=== PATIENT | female | born 1985 | race Caucasian/White ===

== ENCOUNTER 2018-02-27 20:10 | Observation (INO) ==
[2018-02-27] MEDS ORDERED: *HR* LORazepam 2 MG/ML VIAL IM ONE (20:55)
--- NOTE | 2018-02-27 20:59 | Emergency Department Note ---
Disposition Clinical Impression: TIA (transient ischemic attack), Hypokalemia Disposition: Admitted As Inpatient Condition: Good Time of Disposition: 23:11 General Adult HPI - General Chief complaint: ED General Medical Stated complaint: was here earlier, vomiting, can't keep medication Time Seen by Provider: 02/27/18 20:41 Source: patient Limitations: no limitations Nursing Notes Reviewed: Yes Vital Signs Reviewed: Yes - History of Present Illness HPI Narrative: 32 year old female presents to the eD with complanits of anxiety attacks and numbness and tinlgig into her hands and feet and states that she was seen here earlier for hypokalemia and hypomagnesuym and given replacement and sent home. She states tht she was at home and felt better and then went to bed and wokeup and felt her feet and hands numb which caused her anxiety to get worse and then started getting spasms into her hands without having LOC or stroke like symptoms. PAtient was ambulatory to the ED. Yolynet is alert and oriented and follows commands and appears anxious at bedside. Pain Scale: 0 - Related Data Previous Rx's Medication Instructions Recorded Promethazine [Phenergan] 25 mg RC Q6HR PRN #7 supp.rect 05/31/15 Dicyclomine [Bentyl] 10 mg PO TID #30 capsule 07/21/15 HYDROcodone/Acet 5/325 mg [[place] 1 tab PO Q6H PRN #10 tab 07/21/15 5-325 mg] Ondansetron [Zofran] 4 mg PO Q8HR #20 tablet 07/21/15 Potassium Citrate [Urocit-K] 10 meq PO BID #10 tablet.er 01/17/16 Omeprazole [PriLOSEC] 20 mg PO DAILY #30 cap 03/29/16 Ondansetron ODT [Zofran ODT] 4 mg SL Q6H PRN #10 tab.rapdis 03/29/16 Amoxicillin 875 mg PO BID 10 Days tablet 06/23/16 Sulfamethoxazole/Trimeth DS 1 each PO TID 10 Days tablet 06/23/16 [Bactrim DS] Potassium Effervescent [Klyte] 25 meq PO DAILY #14 tablet.eff 07/12/16 Promethazine [Phenergan] 25 mg PO Q8HR #10 tablet 07/12/16 Ondansetron HCl [Zofran] 4 mg PO Q6H PRN #10 tablet 01/13/17 Hyoscyamine SL [Levsin SL] 0.125 mg SL Q4HR PRN #15 tab.subl 06/02/17 Phenazopyridine [Pyridium] 100 mg PO TID PRN #25 tablet 06/02/17 Budesonide [Uceris] 9 mg PO QAM #14 tabdr...er 10/03/17 DiphenhydraMINE [Benadryl] 25 mg PO Q4HR PRN #28 capsule 10/03/17 Allergies Allergy/AdvReac Type Severity Reaction Status Date / Time alprazolam [From Xanax] Allergy Hives Verified 11/30/17 21:44 methylprednisolone Allergy Hives Verified 11/30/17 21:44 [From Depo-Medrol] morphine Allergy Hives Verified 11/30/17 21:44 prednisone Allergy Difficulty Verified 11/30/17 21:44 Breathing Constitutional: Denies: fever, chills, weakness, weight change Eyes: Denies: eye pain, eye discharge, vision change ENT ED: Denies: ear pain, throat pain, dental pain, hearing loss, epistaxis, congestion, dysphagia Cardiovascular: Denies: chest pain, palpitations, dyspnea on exertion, edema, syncope Respiratory: Denies: cough, dyspnea, wheezes, hemoptysis, stridor Gastrointestinal: Denies: abdominal pain, nausea, vomiting, diarrhea, constipation, hematemesis, melena, hematochezia Genitourinary: Denies: dysuria, frequency, hematuria, discharge Musculoskeletal: Reports: as per HPI. Denies: back pain, neck pain, arthralgia , myalgia Integumentary: Denies: rash, abrasion, lesions Neurological: Denies: headache, weakness, numbness, paresthesias, confusion, abnormal gait, vertigo Psychiatric: Reports: anxiety. Denies: depression, suicidal thoughts, homicidal thoughts, auditory hallucinations, visual hallucinations Endocrine: Denies: fatigue Hematological/Lymphatic: Denies: easy bleeding, easy bruising Allergic/Immunologic: Denies: facial swelling, urticaria Past Medical History - Past Medical History Medical history: Reports: cancer Surgical history: Reports: appendectomy, cholecystectomy, hysterectomy, other ( Breast lump removal) Psychiatric history: Reports: anxiety, depression TURBINE TECHNICIAN history: Reports: no TURBINE TECHNICIAN history - Social History Smoking Status: Current every day smoker Smokeless Tobacco Status: No Alcohol use: Reports: occasionally Drug use: Reports: marijuana Physical Exam - General Limitations: no limitations General appearance: alert, in no apparent distress - Head Head exam: atraumatic, normocephalic, normal inspection - Eye Eye exam: Present: normal appearance, PERRL, EOMI - Expanded Eye Exam Pupils: Bilateral: reactive - ENT ENT exam: normal exam, normal oropharynx, mucous membranes moist - Expanded ENT Exam External ear exam: Present: normal external inspection Mouth exam: Present: normal external inspection Teeth exam: Present: normal inspection Throat exam: Present: normal inspection - Neck Neck exam: Present: normal inspection, full ROM, trachea midline - Chest Chest inspection: Present: normal inspection, symmetric chest wall rise - Respiratory Respiratory exam: Present: normal lung sounds bilaterally - Cardiovascular Cardiovascular exam: Present: regular rate, normal rhythm, normal heart sounds - Abdominal Exam Abdominal exam: Present: soft, Non-Tender. Absent: tenderness, distention, guarding, rebound, rigidity - Extremities Exam Extremities exam: Present: normal inspection, full ROM. Absent: tenderness, pedal edema - Expanded Upper Extremity Exam Shoulder exam: Present: normal inspection, full ROM Arm exam: Present: normal inspection, full ROM Elbow exam: Present: normal inspection, full ROM Forearm/Wrist exam: Present: normal inspection, full ROM Hand exam: Present: normal inspection, full ROM Vascular exam: Normal: capillary refill, radial pulse - Expanded Lower Extremity Exam Hip/Pelvis exam: Present: normal inspection, full ROM Upper leg exam: Present: normal inspection, full ROM Knee exam: Present: normal inspection, full ROM Lower leg exam: Present: normal inspection, full ROM Ankle exam: Present: normal inspection, full ROM Foot/toe exam: Present: normal inspection, full ROM Neurovascular/Tendon exam: Absent: motor deficit, sensory deficit, tendon deficit - Back Exam Back exam: Present: normal inspection, full ROM. Absent: tenderness - Neurological Exam Neurological exam: Present: alert, oriented X3 - Expanded Neurological Exam Patient oriented to: Present: person, place, time Speech: Present: fluid speech Cranial nerves: EOM function (II, III, IV, ): Normal, facial sensation (V): Normal, facial palsy (VII): Normal, gag reflex (IX): Normal, spinal accessory function (XI): Normal, tongue deviation (XII): Normal Cerebellar function: finger to nose: Normal, heel to carranza: Normal Cerebellar function: normal gait Motor strength - LUE: 5/5 Motor strength - RUE: 5/5 Motor strength - LLE: 5/5 Motor strength - RLE: 5/5 Upper motor neuron exam: mikayla neglect: Absent bilaterally, pronator drift: Absent bilaterally Sensory exam upper extremity: light touch: Normal, pin prick: Normal Sensory exam lower extremity: light touch: Normal, pin prick: Normal Coma Scale Eye Opening: Spontaneous Coma Scale Motor Response: Obeys Commands Coma Scale Verbal Response: Oriented Coma Scale Total: 15 - Psychiatric Psychiatric exam: Present: normal affect, normal mood - Skin Skin exam: Present: warm, dry, intact, normal color Course Course Narrative: we will do potassium and magnesium labs for recheck. EKG is NSR at bedside. Patient will be given ativan for her anxiety. I believe there is a pyschosomatic nature to her symptoms which seems simliar to how she presented earlier. She states that she vomtitied her pills up from earlier. - Reevaluation(s) Reevaluation #1: patient is vomitting at bedside and is unable to tolerate PO. and her potassium has decreased. WE will admit to medicine for hypokalemia. Time: 21:29 Reevaluation #2: patient has an acute change in neuro sympttoms and as 2134 start to display dysarthria in addition to lefts ided facial droop and left sided upper extremity difficulty with finger to nose but no pronator drift. We have called STROKE ALERT Time: 21:40 - Consultations Consultation #1: dscussed case with Dr. starr tena with [facility] at [facility]. She woul dlike the results of the CTA head and neck and then we will discuss whether she needs to be trasnferred to [facility] Time: 22:25 Consultation #2: discussed case with and he accepts aptinet for admission, Time: 23:10 Vital Signs Temperature 98.3 F 02/27/18 20:28 Pulse Rate 90 02/27/18 20:28 Respiratory Rate 18 02/27/18 20:28 Blood Pressure 126/79 02/27/18 20:28 O2 Sat by Pulse Oximetry 99 02/27/18 20:28 Temperature 98.3 F 02/27/18 20:28 Pulse Rate 82 02/27/18 22:52 Respiratory Rate 18 02/27/18 22:52 Blood Pressure 109/73 02/27/18 22:52 O2 Sat by Pulse Oximetry 94 02/27/18 22:52 Oxygen Delivery Oxygen Delivery Room Air Medical Decision Making - Lab Data Result diagrams: 02/27/18 22:16 02/27/18 22:16 Lab Results 02/27/18 02/27/18 02/27/18 Range/Units 20:54 22:16 22:16 WBC 11.6 H (4.3-11.1) K/mcL RBC 4.31 (3.82-4.97) M/mcL Hgb 13.2 (11.5-15.4) g/dL Hct 38.4 (35.3-44.9) % MCV 89.1 (83.0-100.0) fL MCH 30.6 (28.0-33.3) pg MCHC 34.4 (31.6-35.5) g/dL RDW 13.0 (11.5-14.5) % Plt Count 309 (140-400) K/mcL MPV 10.1 (9.4-12.4) fL Immature Gran % 0.3 (0-4) % Seg Neutrophils % 63.0 % Lymphocytes % 30.5 % Monocytes % 5.3 % Eosinophils % 0.5 % Basophils % 0.4 % Neutrophils # 7.3 (1.6-8.9) K/mcL Lymphocytes # 3.5 (0.6-4.6) K/mcL Monocytes # 0.6 (0.0-1.3) K/mcL Eosinophils # 0.1 (0.0-0.6) K/mcL Basophils # 0.1 (0.0-0.2) K/mcL Immature Plt Fraction 4.7 (1.1-6.1) % PT 12.5 H (9.4-12.1) Seconds INR 1.1 APTT 33.8 (26.0-36.0) Seconds Sodium 143 (136-145) mEq/L Potassium 2.9 L (3.5-5.1) mEq/L Chloride 107 (98-107) mEq/L Carbon Dioxide 21 L (23-29) mEq/L BUN 6 (6-20) mg/dL Creatinine 0.70 (0.60-1.20) mg/dL Est GFR ( Amer) > 60 (> 60) Est GFR (Non-Af Amer) > 60 (> 60) BUN/Creatinine Ratio 9 (6-26) Glucose 104 (70-105) mg/dL Calculated Osmolality 294 (280-300) Calcium 9.6 (8.6-10.3) mg/dL Magnesium 1.6 (1.6-2.6) mg/dL Total Bilirubin 0.6 (0.3-1.0) mg/dL AST 17 (13-39) Units/L ALT 12 (7-52) Units/L Alkaline Phosphatase 75 (34-104) Units/L Troponin I (< 0.04) ng/mL Serum Total Protein 7.2 (6.4-8.9) g/dL Albumin 4.5 (3.5-5.7) g/dL Globulin 2.7 (2.4-3.5) g/dL Albumin/Globulin Ratio 1.7 (1.1-2.2) 02/27/18 Range/Units 22:16 WBC (4.3-11.1) K/mcL RBC (3.82-4.97) M/mcL Hgb (11.5-15.4) g/dL Hct (35.3-44.9) % MCV (83.0-100.0) fL MCH (28.0-33.3) pg MCHC (31.6-35.5) g/dL RDW (11.5-14.5) % Plt Count (140-400) K/mcL MPV (9.4-12.4) fL Immature Gran % (0-4) % Seg Neutrophils % % Lymphocytes % % Monocytes % % Eosinophils % % Basophils % % Neutrophils # (1.6-8.9) K/mcL Lymphocytes # (0.6-4.6) K/mcL Monocytes # (0.0-1.3) K/mcL Eosinophils # (0.0-0.6) K/mcL Basophils # (0.0-0.2) K/mcL Immature Plt Fraction (1.1-6.1) % PT (9.4-12.1) Seconds INR APTT (26.0-36.0) Seconds Sodium 138 (136-145) mEq/L Potassium 2.7 L (3.5-5.1) mEq/L Chloride 104 (98-107) mEq/L Carbon Dioxide 22 L (23-29) mEq/L BUN 6 (6-20) mg/dL Creatinine 0.72 (0.60-1.20) mg/dL Est GFR ( Amer) > 60 (> 60) Est GFR (Non-Af Amer) > 60 (> 60) BUN/Creatinine Ratio 8 (6-26) Glucose 93 (70-105) mg/dL Calculated Osmolality 283 (280-300) Calcium 9.4 (8.6-10.3) mg/dL Magnesium (1.6-2.6) mg/dL Total Bilirubin (0.3-1.0) mg/dL AST (13-39) Units/L ALT (7-52) Units/L Alkaline Phosphatase (34-104) Units/L Troponin I < 0.03 (< 0.04) ng/mL Serum Total Protein (6.4-8.9) g/dL Albumin (3.5-5.7) g/dL Globulin (2.4-3.5) g/dL Albumin/Globulin Ratio (1.1-2.2)
[2018-02-27 21:26] LABS: Alanine Aminotransferase 12 Units/L (7-52); Albumin 4.5 g/dL (3.5-5.7); Albumin/Globulin Ratio 1.7 (1.1-2.2); Alkaline Phosphatase 75 Units/L (34-104); Aspartate Amino Transferase 17 Units/L (13-39); BUN/Creatinine Ratio 9 (6-26); Bilirubin,Total 0.6 mg/dL (0.3-1.0); Blood Urea Nitrogen 6 mg/dL (6-20); Calcium 9.6 mg/dL (8.6-10.3); Carbon Dioxide 21 mEq/L (23-29); Chloride 107 mEq/L (98-107); Globulin 2.7 g/dL (2.4-3.5); Glucose 104 mg/dL (70-105); Magnesium 1.6 mg/dL (1.6-2.6); Osmolality,Calculated 294 (280-300); Potassium 2.9 mEq/L (3.5-5.1); Sodium 143 mEq/L (136-145); Total Protein 7.2 g/dL (6.4-8.9); eGFR For Non-African Americans > 60 (> 60)
[2018-02-27] MEDS ORDERED: *HR* Promethazine 25 MG/ML VIAL IVP ONE ×2 (21:26→21:28)
[2018-02-27] MEDS ORDERED: *HR* LORazepam 2 MG/ML VIAL IVP ONE (21:29)
[2018-02-27] MEDS ORDERED: Isovue-370 500 ML INFUS..BTL IV ONE (21:43)
[2018-02-27 22:25] LABS: Basophils # 0.1 K/mcL (0.0-0.2); Basophils % 0.4 %; Eosinophils # 0.1 K/mcL (0.0-0.6); Eosinophils % 0.5 %; Hematocrit 38.4 % (35.3-44.9); Hemoglobin 13.2 g/dL (11.5-15.4); Immature Granulocytes % 0.3 % (0-4); Immature Platelets 4.7 % (1.1-6.1); Lymphocytes # 3.5 K/mcL (0.6-4.6); Lymphocytes % 30.5 %; Mean Corpuscular HGB Conc 34.4 g/dL (31.6-35.5); Mean Corpuscular Hemoglobin 30.6 pg (28.0-33.3); Mean Corpuscular Volume 89.1 fL (83.0-100.0); Mean Platelet Volume 10.1 fL (9.4-12.4); Monocytes # 0.6 K/mcL (0.0-1.3); Monocytes % 5.3 %; Neutrophils # 7.3 K/mcL (1.6-8.9); Platelet Count 309 K/mcL (140-400); Red Blood Count 4.31 M/mcL (3.82-4.97)
[2018-02-27 22:31] LABS: INR 1.1; Prothrombin Time 12.5 Seconds (9.4-12.1)
[2018-02-27 22:33] LABS: Activated Partial Thrombo Time 33.8 Seconds (26.0-36.0)
[2018-02-27 22:49] LABS: BUN/Creatinine Ratio 8 (6-26); Blood Urea Nitrogen 6 mg/dL (6-20); Calcium 9.4 mg/dL (8.6-10.3); Carbon Dioxide 22 mEq/L (23-29); Chloride 104 mEq/L (98-107); Glucose 93 mg/dL (70-105); Osmolality,Calculated 283 (280-300); Potassium 2.7 mEq/L (3.5-5.1); Sodium 138 mEq/L (136-145); Troponin I < 0.03 ng/mL (< 0.04); eGFR For Non-African Americans > 60 (> 60)
[2018-02-27] MEDS ORDERED: Aspirin 325 MG TABLET PO ONE (23:10)
[2018-02-28] MEDS ORDERED: Gadolinium Contrast Agent (WT Based) IV PRN (02:13)
[2018-02-28] MEDS ORDERED: Naloxone 0.4 MG/ML INJ IVP PRN (02:13)
[2018-02-28] MEDS ORDERED: *HR* HYDROcodone/Acet 7.5/325 mg TABLET PO PRN (02:21)
[2018-02-28] MEDS ORDERED: Potassium Chloride 40 MEQ, Lidocaine 1% 2 ML in D5% in Water 500 ML IVPB ONE (07:21)
--- NOTE | 2018-02-28 07:22 | Internal Med History&Physical ---
Date of Encounter: 03/01/18 Time of Encounter: 05:00 Internal Medicine - H&P: HPI Chief complaint: Feeling Terrible History of present illness: Ms. Ponce is a 32 year old female with a past medical history of reported Crohn 's disease, gastroparesis, anxiety and hypokalemia in the setting of recurrent nausea and vomiting who presented complaints of numbness and tingling in her hands and feet. Patient was seen here earlier for hypokalemia and hypomagnesemia replacement and sent home. She went to bed and awoke later that afternoon noting bilateral upper and lower extremity numbness and tingling at the level of the elbows down and at the level of the knees down which she describes as similar to when an extremity falls asleep. She added that her legs felt like jelly and was unable to get up which has never happened to her previously. Patient became anxious and subsequently started developing chest pain and anxiety similar to her previous episodes of panic attack. Patient subsequently returned to the ED. She also reports a history of Crohn's disease and 4 years of daily nausea, vomiting and diarrhea. She states she vomits approximately 13-15 episodes a day. Patient denied any weakness, fever, chills or sick contacts. While in the ED staff noted that the patient began developing one-sided facial droop and slurred speech and it was at this time that concern for stroke versus TIA was entertained. A CT of the head, as well as a CTA of the head and neck were performed which were unremarkable. EKG was also unremarkable. Labs were notable for a mild leukocytosis of 11.6 and a potassium of 2.7. Past Med Surg Social Fam HX - Past Medical History Medical history: cancer Additional medical history: crohns Psychiatric history: anxiety, depression - Past Surgical History Surgical History: appendectomy, cholecystectomy, hysterectomy, other Additional surgical history: bowel resection - Social History Smoking Status: Current every day smoker Packs per day: half a pack Smokeless Tobacco Status: No Alcohol use: occasionally Drug use: marijuana - Family History Mother Age: 54 Hx Family GI Disorders: Yes (colilits) Father Age: 59 Living Status: Still Living Hx Family Cardiac Disorders: Yes (Stroke, [place]) Internal Medicine - H&P: Meds Citalopram [CeleXA] 20 mg PO DAILY 02/28/18 [History] GI Cocktail [Gi Cocktail] 10 ml PO DAILY 02/28/18 [History] HYDROcodone/Acet 7.5/325 mg [Blue 7.5-325 mg] 1 tab PO Q6HR PRN 02/28/18 [ History] Ondansetron ODT [Zofran ODT] 8 mg SL Q6H PRN 02/28/18 [History] Promethazine [Phenergan] 25 mg PO Q4HR PRN 02/28/18 [History] 3 Allergy/AdvReac Type Severity Reaction Status Date / Time alprazolam [From Xanax] Allergy Hives Verified 11/30/17 21:44 methylprednisolone Allergy Hives Verified 11/30/17 21:44 [From Depo-Medrol] morphine Allergy Hives Verified 11/30/17 21:44 prednisone Allergy Difficulty Verified 11/30/17 21:44 Breathing All Systems PM: A 10-system review of systems was performed and is negative for pertinent findings except as documented above in the HPI. - Constitutional Constitutional: no chills, no fever(s), no night sweats - EENT Eyes: no change in vision, no discharge, no pain, no photophobia Ears: no ear discharge, no ear pain, no tinnitus Nose, mouth and throat: no dysphagia, no nasal discharge, no neck pain, no sore throat - Cardiovascular Cardiovascular ROS IM: no chest pain, no diaphoresis, no dyspnea, no lightheadedness, no palpitations, no syncope - Respiratory Respiratory: no cough, no dyspnea, no wheezing, no excessive phlegm production - Gastrointestinal Gastrointestinal: no abdominal pain, no diarrhea, no hematemesis, no hematochezia, no melena, no nausea, no vomiting - Genitourinary Genitourinary: no change in urinary stream, no dysuria, no flank pain, no hematuria - Musculoskeletal Musculoskeletal ROS IM: no numbness, no tingling - Integumentary Integumentary IM: no rash, no unusual bruising - Neurological Neurological ROS: no confusion, no convulsions, no focal weakness, no numbness, no tingling, no tremor(s) - Hematologic/Lymphatic Hematologic/Lymphatic: no easy bruising - Constitutional Vitals: Temp Pulse Resp BP Pulse Ox 98.1 F 67 18 105/70 97 02/28/18 02:55 02/28/18 02:55 02/28/18 02:55 02/28/18 02:55 02/28/18 02:55 Exam: General: Alert and oriented 3. Lying in bed in no acute distress. Skin:Normal color, no rash, no lesions. HEENT:EOM, pupils equal, round and reactive. Cardiovascular:Normal S1 & S2, no rubs, murmurs or gallops. No JVD. Pulse regular. Lungs:Normal breath sounds, no wheezes or crackles. Abdomen:Soft, non-tender, no rigidity. Extremities:No deformity, no edema or tenderness, no joint swelling or clubbing. Neurological:Normal cognition and he: Cranial nerves II through XII intact; strength 5 out of 5 in the upper and lower extremities. No evidence of pronator drift.. Pulses:Carotid and radial pulses normal +2. Rest of the physical exam is non contributory Internal Med - H&P Results - Labs CBC & Chem 7: 02/27/18 22:16 02/27/18 22:16 - Assessment and plan (1) TIA (transient ischemic attack) Status: Acute Assessment and plan: Reports of one sided facial droop and slurred speech witnessed by staff in the ED which now appears to have resolved concerning for TIA. Patient given a loading dose of aspirin in the ED. We will admit for stroke/TIA workup though cannot discount a metabolic cause of her acute change given her hypokalemia and reported history of daily nausea and vomiting. Frequent Neuro checks. MRI in the morning area and echocardiogram and carotid duplex. Neurology consult in the morning (2) Hypokalemia Status: Acute Assessment and plan: Hyperkalemia likely secondary to recurrent nausea and vomiting. We will replete IV and by mouth as needed (3) Nausea Status: Acute (4) Hypomagnesemia Status: Acute Assessment and plan: Acne seem low normal. We will replete (5) Leukocytosis, unspecified Status: Acute Assessment and plan: Mildly elevated white blood cell count likely stress-induced. Patient has no evidence of infection. We will monitor and repeat Qualifiers: Leukocytosis type: unspecified Qualified Code(s): D72.829 - Elevated white blood cell count, unspecified - Time Spent With Patient Total time spent is greater than 50% in coordination of care (as documented) at patient's floor/unit and/or counseling patient:
[2018-02-28 07:31] VITALS: BP 126/65
[2018-02-28] MEDS ORDERED: *HR* Heparin 5,000 UNIT/ML VIAL SQ SCH (07:45)
--- NOTE | 2018-02-28 09:33 | Neurology - Consult Note ---
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 Ponce is a 32 year old female wit h/o Crohn's disease, gastroparesis, anxiety and hypokalemia, hypomagenesemia , with recurrent nausea and vomiting presented to [facility] ED for numbness and tingling in her hands and feet for 1 day. She developed bilateral upper and lower extremity numbness and tingling below the level of the elbows and below knee both side . She denies any weakness, headache, any focal neurological deficit, fall injury. She had done CT head and CTA neck at ED that came out normal and her EKG was also unremarkable.She denies any h/o stroke in the past and didn't have similar symptoms in the past. She states that she had h/o pass out or lapse of memory , bur no h/o seizure. She is a chronic smoker and takes Marijuana daily . She drinks alcohol very occasionally. Today she states that her symptoms are 50 % better in hands and the same in lower limbs. Vitals stable: 97.8F, 126/65, 96%. Labs: WBC 11.6, Na 138, K 2.7 , magnesium 1.6 , calcium 9.4 .CT head , MRI brain and CTA neck unremarkable. Past Med Surg Social Fam HX - Past Medical History Medical history: cancer Additional medical history: crohns Psychiatric history: anxiety, depression - Past Surgical History Surgical History: appendectomy, cholecystectomy, hysterectomy, other Additional surgical history: bowel resection - Social History Smoking Status: Current every day smoker Packs per day: half a pack Smokeless Tobacco Status: No Alcohol use: occasionally Drug use: marijuana - Family History Mother Age: 54 Hx Family GI Disorders: Yes (colilits) Father Age: 59 Living Status: Still Living Hx Family Cardiac Disorders: Yes (Stroke, [place]) Medications and Allergies Citalopram [CeleXA] 20 mg PO DAILY 02/28/18 [History] GI Cocktail [Gi Cocktail] 10 ml PO DAILY 02/28/18 [History] HYDROcodone/Acet 7.5/325 mg [[place] 7.5-325 mg] 1 tab PO Q6HR PRN 02/28/18 [ History] Ondansetron ODT [Zofran ODT] 8 mg SL Q6H PRN 02/28/18 [History] Promethazine [Phenergan] 25 mg PO Q4HR PRN 02/28/18 [History] 3 Allergy/AdvReac Type Severity Reaction Status Date / Time alprazolam [From Xanax] Allergy Hives Verified 11/30/17 21:44 methylprednisolone Allergy Hives Verified 11/30/17 21:44 [From Depo-Medrol] morphine Allergy Hives Verified 11/30/17 21:44 prednisone Allergy Difficulty Verified 11/30/17 21:44 Breathing All Systems: The remainder of the systems were reviewed and are negative Physical Examination - Vital Signs Vital Signs: Initial Vital Signs Temp Pulse Resp BP Pulse Ox 98.3 F 90 18 126/79 99 02/27/18 20:28 02/27/18 20:28 02/27/18 20:28 02/27/18 20:28 02/27/18 20:28 - Constitutional General appearance: comfortable - Neurologic Sensorimotor examination: intact Detailed motor examination: grossly full strength in all extremities Motor examination - right side: 5/5: deltoids, biceps, triceps, wrist flexion, wrist extension, smt machine operator, hip flexors, tibialis Anterior, quadriceps, toe extension (EHL), plantarflexion Motor examination - left side: 5/5: deltoids, biceps, triceps, wrist flexion, wrist extension, hip flexors, smt machine operator, quadriceps, tibialis Anterior, toe extension (EHL), plantarflexion Detailed sensory examination: intact Reflex and gait examination: normal gait Reflexes: Biceps: 2+, Triceps: 2+, Brachioradialis: 2+, Patella: 2+, Achilles: 2 + Mental Status Examination: awake, alert, oriented to person, oriented to place, oriented to time, follows commands appropriately, answers questions appropriately Cranial nerve examination: PERRL, EOMI, visual calles intact Cerebellar examination: performs finger to nose and heel to carranza symmetrically without ataxia, no gait ataxia Results - Laboratory Findings CBC and BMP: 02/27/18 22:16 02/27/18 22:16 Abnormal lab findings: Abnormal lab results WBC 11.6 K/mcL (4.3-11.1) H 02/27/18 22:16 PT 12.5 Seconds (9.4-12.1) H 02/27/18 22:16 Potassium 2.7 mEq/L (3.5-5.1) L 02/27/18 22:16 Carbon Dioxide 22 mEq/L (23-29) L 02/27/18 22:16 Consult Discharge Plan - Plan Referrals: Taj Albarran MD [Primary Care Provider] - <Domingo Pickens I - Last Filed: 02/28/18 12:00> Date of Encounter: 02/28/18 Time of Encounter: 11:57 Assessment and Plan (1) Numbness and tingling Status: Acute Pt was not seen and examined, as patient's left AMA before I was able to see and examine Patient record was reviewed with the Resident Physician, I agree with the documented findings, disposition and treatment plan, As per history and records no evidence of TIA or stroke At the same time less likely it was any peripheral nerve disorder due to the acute finding though numbness paresthesias could be concerning off GBS but symptoms were white acute and on exam there was no changes in the reflexes which seems to be less likely in the patient with acute GBS Regardless patient has left AMA. Domingo Pickens MD History of Present Illness HPI: Ms. Ponce is a 32 year old female All Systems: The remainder of the systems were reviewed and are negative Physical Examination - Vital Signs Vital Signs: Initial Vital Signs Temp Pulse Resp BP Pulse Ox 98.3 F 90 18 126/79 99 02/27/18 20:28 02/27/18 20:28 02/27/18 20:28 02/27/18 20:28 02/27/18 20:28 Results - Laboratory Findings CBC and BMP: 02/27/18 22:16 02/27/18 22:16 Abnormal lab findings: Abnormal lab results WBC 11.6 K/mcL (4.3-11.1) H 02/27/18 22:16 PT 12.5 Seconds (9.4-12.1) H 02/27/18 22:16 Potassium 2.7 mEq/L (3.5-5.1) L 02/27/18 22:16 Carbon Dioxide 22 mEq/L (23-29) L 02/27/18 22:16
--- NOTE | 2018-02-28 11:03 | Event Note ---
Date of Encounter: 02/28/18 Time of Encounter: 10:58 Patient here with anxiety and extremity numbness and tingling as well as hypokalemia. H/o chronic hypokalemia. TIA r/o, CT and CTA imaging negative, symptoms resolving. I was called to the room as the patient was emotional and stating she wanted to sign out. The patient was upset about home issues. I discussed with the patient her reason for admission as well as the need to further rule out TIA and treat hypokalemia. I FURTHER discussed with her the need for further monitoring and risks for worsening neurologic status as well as risks for arrhythmias with hypokalemia including the risks of further morbidity and . The patient was offered additional treatment for hypokalemia and workup for TIA, however, she declined. She was offered PO potassium before she leaves, but she declined. The patient verbalizes understanding of verbalizes the risk for further morbidity, mortality and/or . She continued to sign out AGAINST MEDICAL ADVICE. Prior to discharge she continued to decline oral potassium. During my brief time the patient she was emotional and very demanding, demanding narcotics and Phenergan and became upset when I told her I needed to check an [facility] report prior to prescribing her "HOME MEDICATIONS". She was evaluated for suicidal and/or homicidal ideation and denies any intent to harm self or others. Additionally, the patient denied any auditory or visual hallucinations and does not appear to have any signs or symptoms of withdrawal. Again, it should be noted that the patient signed out AGAINST MEDICAL ADVICE after being offered additional workup and treatment and explained the risks. This discussion was witnessed by Justyna ortez ASSIGNED RN.
== END 2018-02-28 11:00 | disposition left against medical advice (07) ==
LOC: 3BNU 20:10 → EMEROOARM 20:10 → 3BNU 02-28 00:11
PROVIDERS: ADMIT Internal Medicine; ATTEND Internal Medicine